=== PATIENT | male | born 1980 | race Caucasian/White ===

== ENCOUNTER 2016-12-30 01:47 | Inpatient (IN) | payer OTHER ==
[~2016-12-30] VITALS: Ht 162.6 cm; Wt 85.8 kg
[2016-12-30] MEDS ORDERED: ZOLPIDEM 5 MG TABLET. PO PRN (03:00)
[2016-12-30] MEDS ORDERED: NICOTINE 14MG PATCH. TD PRN (03:00)
[2016-12-30 03:15] VITALS: BP 128/84
[2016-12-30] MEDS ORDERED: OXYCODONE/APAP 7.5/325 TABLET. PO PRN (03:30)
[2016-12-30] MEDS ORDERED: ONDANSETRON ODT 4 MG TAB.RAPDIS. PO PRN (03:30)
[2016-12-30] MEDS: OXYCODONE/APAP 7.5/325 TABLET. PO PRN ×2 (03:58→09:44)
[2016-12-30] MEDS: IV NORMAL SALINE 1000ML BAG 1,000 ML IV SCH ×2 (03:58→16:30)
[2016-12-30 07:00] VITALS: BP 133/81
[2016-12-30] MEDS: PANTOPRAZOLE 40 MG TABLET.DR. PO SCH (09:36)
[2016-12-30 10:52] LABS: BASO % 0 % (0-3); EOS % 1 % (0-3); HEMATOCRIT 42.3 % (39.0-53.0); HEMOGLOBIN 14.5 g/dL (13.0-17.5); LYMPH # 0.7 x10^3/uL (1.0-4.8); LYMPH % 9 % (24-48); MEAN CORPUSCULAR HEMOGLOBIN 29 pg (25-35); MEAN CORPUSCULAR HGB CONC 34 g/dL (31-37); MEAN CORPUSCULAR VOLUME 86 fL (79-100); MONO % 4 % (0-9); NEUT % 87 % (31-73); PLATELET COUNT 190 x10^3/uL (140-400); RED BLOOD COUNT 4.94 x10^6/uL (4.30-5.70); RED CELL DISTRIBUTION WIDTH 13.1 % (11.5-14.5); WHITE BLOOD COUNT 7.9 x10^3/uL (4.0-11.0)
--- NOTE | 2016-12-30 11:02 | RAD ---
Portable AP upright view CXR: Clinical indications: Cough. Comparison: None available. Findings: No acute lung infiltrate or pleural effusion or pulmonary edema or lung mass or pneumothorax is seen. The heart size, pulmonary vasculature, mediastinum and both marina are unremarkable. Impression: No acute radiographic abnormality is seen.
[2016-12-30 11:04] LABS: CALCIUM 8.5 mg/dL (8.5-10.1); CREATININE 0.8 mg/dL (0.7-1.3); DIRECT BILIRUBIN 0.2 mg/dL (0.0-0.2); GFR 109.4; POTASSIUM 4.1 mmol/L (3.5-5.1)
[2016-12-30 11:14] VITALS: BP 133/90
[2016-12-30 12:06] LABS: PLT ESTIMATE ADEQUATE (ADEQUATE)
--- NOTE | 2016-12-30 12:13 | PDOC1 ---
History and Physical Date of Admission Date of Admission 12/29/16 Identification/Chief Complaint Chief Complaint abd pain Problems: Source Source: Patient History of Present Illness History of Present Illness 36yo M, was sent from [facility] for abd pain. He has had possible esophageal ulcer with NSAIDS in 2014, current not taking NSADIS. Epigastric pain started yesterday AM, no N/V, bm NORMAl daily wo constipation or diarrhea. in [facility] ,as per report (no CT result sent from [facility]), pt was found only left kidney with hydronephrosis with right kidney missing, which is new to pt. Never had EGD, OR Colonoscopy before. vomited here today. Past Medical History Past Medical History none Past Surgical History Past Surgical History: No pertinent history Family History Family History: No Significant Social History Smoke: No ALCOHOL: other (2 times per week) Drugs: None Current Medications Current Medications Current Medications Medications (Trade) Dose Ordered Sig/Philip Start Time Stop Time Status Last Admin Dose Admin Nicotine (Nicoderm Cq 14mg) 1 patch PRN DAILY PRN 12/30/16 03:00 Ondansetron HCl (Zofran Odt) 4 mg PRN Q8HRS PRN 12/30/16 03:30 12/30/16 10:43 4 MG Oxycodone/ Acetaminophen (Percocet 7.5/ 325) 2 tab PRN Q4HRS PRN 12/30/16 03:30 Pantoprazole Sodium 40 mg 40 mg DAILYAC 12/30/16 07:30 12/30/16 09:36 40 MG Sodium Chloride (Iv Sodium Chloride 0.9% 1000ml Bag) 1,000 ml @ 75 mls/hr [id number] 12/30/16 03:30 12/30/16 03:58 75 MLS/HR Zolpidem Tartrate (Ambien) 5 mg PRN QHS PRN 12/30/16 03:00 Allergies Allergies Allergies Coded Allergies Type Severity Reaction Last Updated Verified NSAIDS (Non-Steroidal Anti-Inflamma Adverse Reaction Intermediate 12/30/16 Yes ROS Review of System CONSTITUTIONAL: No fever or chills EYES: No recent changes SKIN: No rash or itching CARDIOVASCULAR: No chest pain, syncope, palpitations, or edema RESPIRATORY: No SOB or cough GASTROINTESTINAL: No nausea, vomiting or abdominal pain NEUROLOGICAL: No headaches or weakness ENDOCRINE: No cold or heat intolerance GENITOURINARY: No urgency or frequency of urination MUSCULOSKELETAL: No back pain or joint pain LYMPHATICS: No enlarged lymph nodes PSYCHIATRIC: No anxiety or depression Physical Exam Physical Exam GEN.: No apparent distress. Alert and oriented. HEENT: Head is normocephalic, atraumatic NECK: Supple. LUNGS: Clear to auscultation. HEART: RRR, S1, S2 present. Peripheral pulses intact ABDOMEN: Soft, Positive bowel sounds. epigastric area moderate tenderness EXTREMITIES: Without any cyanosis. NEUROLOGIC: Normal speech, normal tone PSYCHIATRIC: Normal affect, normal mood. SKIN: No ulcerations Vitals Vitals Vital Signs Date Time Temp Pulse Resp B/P Pulse Ox O2 Delivery O2 Flow Rate FiO2 12/30/16 11:14 97.7 50 18 133/90 98 Room Air 97.7 Labs Labs Laboratory Tests Test 12/30/16 10:22 12/30/16 10:35 White Blood Count 7.9x10^3/uL (4.0-11.0) Red Blood Count 4.94x10^6/uL (4.30-5.70) Hemoglobin 14.5g/dL (13.0-17.5) Hematocrit 42.3% (39.0-53.0) Mean Corpuscular Volume 86fL (79-100) Mean Corpuscular Hemoglobin 29pg (25-35) Mean Corpuscular Hemoglobin Concent 34g/dL (31-37) Red Cell Distribution Width 13.1% (11.5-14.5) Platelet Count 190x10^3/uL (140-400) Neutrophils (%) (Auto) 87% (31-73) Lymphocytes (%) (Auto) 9% (24-48) Monocytes (%) (Auto) 4% (0-9) Eosinophils (%) (Auto) 1% (0-3) Basophils (%) (Auto) 0% (0-3) Neutrophils # (Auto) 6.8x10^3uL (1.8-7.7) Lymphocytes # (Auto) 0.7x10^3/uL (1.0-4.8) Monocytes # (Auto) 0.3x10^3/uL (0.0-1.1) Eosinophils # (Auto) 0.0x10^3/uL (0.0-0.7) Basophils # (Auto) 0.0x10^3/uL (0.0-0.2) Segmented Neutrophils % 85% (35-66) Band Neutrophils % 2% (0-9) Lymphocytes % 8% (24-48) Monocytes % 5% (0-10) Platelet Estimate Adequate (ADEQUATE) Sodium Level 139mmol/L (136-145) Potassium Level 4.1mmol/L (3.5-5.1) Chloride Level 102mmol/L (98-107) Carbon Dioxide Level 28mmol/L (21-32) Anion Gap 9 (6-14) Blood Urea Nitrogen 16mg/dL (8-26) Creatinine 0.8mg/dL (0.7-1.3) Estimated GFR (Cockcroft-Gault) 109.4 Glucose Level 135mg/dL (70-99) Calcium Level 8.5mg/dL (8.5-10.1) Total Bilirubin 1.0mg/dL (0.2-1.0) Direct Bilirubin 0.2mg/dL (0.0-0.2) Aspartate Amino Transf (AST/SGOT) 394U/L (15-37) Alanine Aminotransferase (ALT/SGPT) 69U/L (16-63) Alkaline Phosphatase 50U/L (46-116) Total Protein 7.0g/dL (6.4-8.2) Albumin 4.0g/dL (3.4-5.0) Lipase 131U/L (73-393) Laboratory Tests Test 12/30/16 10:22 12/30/16 10:35 White Blood Count 7.9x10^3/uL (4.0-11.0) Red Blood Count 4.94x10^6/uL (4.30-5.70) Hemoglobin 14.5g/dL (13.0-17.5) Hematocrit 42.3% (39.0-53.0) Mean Corpuscular Volume 86fL (79-100) Mean Corpuscular Hemoglobin 29pg (25-35) Mean Corpuscular Hemoglobin Concent 34g/dL (31-37) Red Cell Distribution Width 13.1% (11.5-14.5) Platelet Count 190x10^3/uL (140-400) Neutrophils (%) (Auto) 87% (31-73) Lymphocytes (%) (Auto) 9% (24-48) Monocytes (%) (Auto) 4% (0-9) Eosinophils (%) (Auto) 1% (0-3) Basophils (%) (Auto) 0% (0-3) Neutrophils # (Auto) 6.8x10^3uL (1.8-7.7) Lymphocytes # (Auto) 0.7x10^3/uL (1.0-4.8) Monocytes # (Auto) 0.3x10^3/uL (0.0-1.1) Eosinophils # (Auto) 0.0x10^3/uL (0.0-0.7) Basophils # (Auto) 0.0x10^3/uL (0.0-0.2) Segmented Neutrophils % 85% (35-66) Band Neutrophils % 2% (0-9) Lymphocytes % 8% (24-48) Monocytes % 5% (0-10) Platelet Estimate Adequate (ADEQUATE) Sodium Level 139mmol/L (136-145) Potassium Level 4.1mmol/L (3.5-5.1) Chloride Level 102mmol/L (98-107) Carbon Dioxide Level 28mmol/L (21-32) Anion Gap 9 (6-14) Blood Urea Nitrogen 16mg/dL (8-26) Creatinine 0.8mg/dL (0.7-1.3) Estimated GFR (Cockcroft-Gault) 109.4 Glucose Level 135mg/dL (70-99) Calcium Level 8.5mg/dL (8.5-10.1) Total Bilirubin 1.0mg/dL (0.2-1.0) Direct Bilirubin 0.2mg/dL (0.0-0.2) Aspartate Amino Transf (AST/SGOT) 394U/L (15-37) Alanine Aminotransferase (ALT/SGPT) 69U/L (16-63) Alkaline Phosphatase 50U/L (46-116) Total Protein 7.0g/dL (6.4-8.2) Albumin 4.0g/dL (3.4-5.0) Lipase 131U/L (73-393) VTE Prophylaxis Ordered VTE Prophylaxis Devices: Yes VTE Pharmacological Prophylaxi: Yes Assessment/Plan Assessment/Plan 1. abd pain , 2/2 gastritis likely 2/2 heavy ETOH 2. elevated transaminitis 2/2 alcoholic hepatitis likely 3. 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 drinker, saying only twice a week, but likely more than that plan: 1. gi, renal consult 2. US abd 3. urine tox 4. protonix daily clear liquid for now, ivf labs daily dvt ppx VASYL KHANNA MD Dec 30, 2016 12:13
[2016-12-30] MEDS ORDERED: MORPHINE SULFATE 4 MG/ML DISP.SYRIN. IV PRN (12:15)
[2016-12-30] MEDS ORDERED: ACETAMINOPHEN 325 MG TABLET. PO PRN (12:15)
[2016-12-30] MEDS ORDERED: MORPHINE SULFATE 2 MG/ML DISP.SYRIN. IV PRN (12:15)
[2016-12-30 12:37] LABS: BARBITURATES NEG (NEG); BENZODIAZEPINES NEG (NEG); CANNABINOIDS NEG (NEG); COCAINE NEG (NEG); METHADONE NEG (NEG); OPIATES POS (NEG); PHENCYCLIDINE NEG (NEG)
[2016-12-30 12:41] LABS: ETHANOL, URINE NEG (NEG)
[2016-12-30] MEDS: ENOXAPARIN 40 MG/0.4 ML SYRINGE. SQ SCH (13:54)
--- NOTE | 2016-12-30 14:16 | PDOC2 ---
CONSULT Date of Consult Date of Consult DATE: 12/30/16 TIME: 14:14 Reason for Consult Reason for Consult: abd pain/increased LFTS Past Surgical History Past Surgical History: No pertinent history Family History Family History: No Significant Social History No ALCOHOL: other (2 times per week) Drugs: None Current Medications Current Medications Current Medications Oxycodone/ Acetaminophen (Percocet 7.5/ 325) 1 tab PRN Q4HRS PRN PO PAIN Last administered on 12/30/16 09:44; Start 12/30/16 at 03:00 Pantoprazole Sodium 40 mg 40 mg DAILYAC PO Last administered on 12/30/16 09:36 ; Start 12/30/16 at 07:30 Sodium Chloride (Iv Sodium Chloride 0.9% 1000ml Bag) 1,000 ml @ 75 mls/hr [id number] IV Last administered on 12/30/16 03:58; Start 12/30/16 at 03:30 Nicotine (Nicoderm Cq 14mg) 1 patch PRN DAILY PRN TD SMOKING CESSATION; Start 12/30/16 at 03:00 Zolpidem Tartrate (Ambien) 5 mg PRN QHS PRN PO INSOMNIA; Start 12/30/16 at 03:00 Ondansetron HCl (Zofran Odt) 4 mg PRN Q8HRS PRN PO NAUSEA/VOMITING Last administered on 12/30/16 10:43; Start 12/30/16 at 03:30 Oxycodone/ Acetaminophen (Percocet 7.5/ 325) 2 tab PRN Q4HRS PRN PO PAIN; Start 12/30/16 at 03:30 Acetaminophen (Tylenol) 650 mg PRN Q6HRS PRN PO FEVER; Start 12/30/16 at 12:15 Morphine Sulfate 2 mg PRN Q2HR PRN IV PAIN; Start 12/30/16 at 12:15 Morphine Sulfate 4 mg PRN Q2HR PRN IV PAIN; Start 12/30/16 at 12:15 Enoxaparin Sodium (Lovenox 40mg Syringe) 40 mg Q24H SQ Last administered on 12/30 13:54; Start 12/30/16 at 13:00 Allergies Allergies: Coded Allergies: NSAIDS (Non-Steroidal Anti-Inflamma (Verified Adverse Reaction, Intermediate, 12/30/16) Prone to ulcer development with prolonged use Vitals VITALS Vital Signs Date Time Temp Pulse Resp B/P Pulse Ox O2 Delivery O2 Flow Rate FiO2 12/30/16 11:14 97.7 50 18 133/90 98 Room Air 97.7 Labs Labs Laboratory Tests Test 12/30/16 10:22 12/30/16 10:35 12/30/16 12:21 White Blood Count 7.9x10^3/uL (4.0-11.0) Red Blood Count 4.94x10^6/uL (4.30-5.70) Hemoglobin 14.5g/dL (13.0-17.5) Hematocrit 42.3% (39.0-53.0) Mean Corpuscular Volume 86fL (79-100) Mean Corpuscular Hemoglobin 29pg (25-35) Mean Corpuscular Hemoglobin Concent 34g/dL (31-37) Red Cell Distribution Width 13.1% (11.5-14.5) Platelet Count 190x10^3/uL (140-400) Neutrophils (%) (Auto) 87% (31-73) Lymphocytes (%) (Auto) 9% (24-48) Monocytes (%) (Auto) 4% (0-9) Eosinophils (%) (Auto) 1% (0-3) Basophils (%) (Auto) 0% (0-3) Neutrophils # (Auto) 6.8x10^3uL (1.8-7.7) Lymphocytes # (Auto) 0.7x10^3/uL (1.0-4.8) Monocytes # (Auto) 0.3x10^3/uL (0.0-1.1) Eosinophils # (Auto) 0.0x10^3/uL (0.0-0.7) Basophils # (Auto) 0.0x10^3/uL (0.0-0.2) Segmented Neutrophils % 85% (35-66) Band Neutrophils % 2% (0-9) Lymphocytes % 8% (24-48) Monocytes % 5% (0-10) Platelet Estimate Adequate (ADEQUATE) Sodium Level 139mmol/L (136-145) Potassium Level 4.1mmol/L (3.5-5.1) Chloride Level 102mmol/L (98-107) Carbon Dioxide Level 28mmol/L (21-32) Anion Gap 9 (6-14) Blood Urea Nitrogen 16mg/dL (8-26) Creatinine 0.8mg/dL (0.7-1.3) Estimated GFR (Cockcroft-Gault) 109.4 Glucose Level 135mg/dL (70-99) Calcium Level 8.5mg/dL (8.5-10.1) Total Bilirubin 1.0mg/dL (0.2-1.0) Direct Bilirubin 0.2mg/dL (0.0-0.2) Aspartate Amino Transf (AST/SGOT) 394U/L (15-37) Alanine Aminotransferase (ALT/SGPT) 69U/L (16-63) Alkaline Phosphatase 50U/L (46-116) Total Protein 7.0g/dL (6.4-8.2) Albumin 4.0g/dL (3.4-5.0) Lipase 131U/L (73-393) Urine Opiates Screen Pos (NEG) Urine Methadone Screen Neg (NEG) Urine Barbiturates Neg (NEG) Urine Phencyclidine Screen Neg (NEG) Urine Amphetamine/Methamphetamine Neg (NEG) Urine Benzodiazepines Screen Neg (NEG) Urine Cocaine Screen Neg (NEG) Urine Cannabinoids Screen Neg (NEG) Urine Ethyl Alcohol Neg (NEG) Laboratory Tests Test 12/30/16 10:22 12/30/16 10:35 12/30/16 12:21 White Blood Count 7.9x10^3/uL (4.0-11.0) Red Blood Count 4.94x10^6/uL (4.30-5.70) Hemoglobin 14.5g/dL (13.0-17.5) Hematocrit 42.3% (39.0-53.0) Mean Corpuscular Volume 86fL (79-100) Mean Corpuscular Hemoglobin 29pg (25-35) Mean Corpuscular Hemoglobin Concent 34g/dL (31-37) Red Cell Distribution Width 13.1% (11.5-14.5) Platelet Count 190x10^3/uL (140-400) Neutrophils (%) (Auto) 87% (31-73) Lymphocytes (%) (Auto) 9% (24-48) Monocytes (%) (Auto) 4% (0-9) Eosinophils (%) (Auto) 1% (0-3) Basophils (%) (Auto) 0% (0-3) Neutrophils # (Auto) 6.8x10^3uL (1.8-7.7) Lymphocytes # (Auto) 0.7x10^3/uL (1.0-4.8) Monocytes # (Auto) 0.3x10^3/uL (0.0-1.1) Eosinophils # (Auto) 0.0x10^3/uL (0.0-0.7) Basophils # (Auto) 0.0x10^3/uL (0.0-0.2) Segmented Neutrophils % 85% (35-66) Band Neutrophils % 2% (0-9) Lymphocytes % 8% (24-48) Monocytes % 5% (0-10) Platelet Estimate Adequate (ADEQUATE) Sodium Level 139mmol/L (136-145) Potassium Level 4.1mmol/L (3.5-5.1) Chloride Level 102mmol/L (98-107) Carbon Dioxide Level 28mmol/L (21-32) Anion Gap 9 (6-14) Blood Urea Nitrogen 16mg/dL (8-26) Creatinine 0.8mg/dL (0.7-1.3) Estimated GFR (Cockcroft-Gault) 109.4 Glucose Level 135mg/dL (70-99) Calcium Level 8.5mg/dL (8.5-10.1) Total Bilirubin 1.0mg/dL (0.2-1.0) Direct Bilirubin 0.2mg/dL (0.0-0.2) Aspartate Amino Transf (AST/SGOT) 394U/L (15-37) Alanine Aminotransferase (ALT/SGPT) 69U/L (16-63) Alkaline Phosphatase 50U/L (46-116) Total Protein 7.0g/dL (6.4-8.2) Albumin 4.0g/dL (3.4-5.0) Lipase 131U/L (73-393) Urine Opiates Screen Pos (NEG) Urine Methadone Screen Neg (NEG) Urine Barbiturates Neg (NEG) Urine Phencyclidine Screen Neg (NEG) Urine Amphetamine/Methamphetamine Neg (NEG) Urine Benzodiazepines Screen Neg (NEG) Urine Cocaine Screen Neg (NEG) Urine Cannabinoids Screen Neg (NEG) Urine Ethyl Alcohol Neg (NEG) Assessment/Plan Assessment/Plan ABd pain- with nausea and increased LFTS, GB disease leads differential. Viral hepatitis and/or alcoholic hepatitis in differential. Plan advance diet US liver/gb to further assess viral serologies Full note dictated RAMIRO HURTADO MD Dec 30, 2016 14:16
[2016-12-30 14:48] VITALS: BP 137/98
[2016-12-30 19:47] VITALS: BP 137/92
[2016-12-30 23:17] VITALS: BP 133/90
[2016-12-31 03:59] VITALS: BP 111/72
[2016-12-31 04:32] LABS: BASO % 0 % (0-3); EOS % 7 % (0-3); HEMATOCRIT 41.1 % (39.0-53.0); HEMOGLOBIN 13.8 g/dL (13.0-17.5); LYMPH % 32 % (24-48); MEAN CORPUSCULAR HEMOGLOBIN 29 pg (25-35); MEAN CORPUSCULAR HGB CONC 34 g/dL (31-37); MEAN CORPUSCULAR VOLUME 87 fL (79-100); MONO % 6 % (0-9); NEUT % 55 % (31-73); PLATELET COUNT 164 x10^3/uL (140-400); RED BLOOD COUNT 4.71 x10^6/uL (4.30-5.70); RED CELL DISTRIBUTION WIDTH 13.5 % (11.5-14.5); WHITE BLOOD COUNT 6.4 x10^3/uL (4.0-11.0)
[2016-12-31 05:06] LABS: ALBUMIN 3.5 g/dL (3.4-5.0); CALCIUM 8.5 mg/dL (8.5-10.1); CREATININE 0.8 mg/dL (0.7-1.3); DIRECT BILIRUBIN 0.3 mg/dL (0.0-0.2); GFR 109.4; POTASSIUM 3.5 mmol/L (3.5-5.1); TOTAL BILIRUBIN 1.1 mg/dL (0.2-1.0); TOTAL PROTEIN 6.3 g/dL (6.4-8.2)
[2016-12-31] MEDS: IV NORMAL SALINE 1000ML BAG 1,000 ML IV SCH (06:08)
[2016-12-31 07:00] VITALS: BP 124/80
[2016-12-31] MEDS: PANTOPRAZOLE 40 MG TABLET.DR. PO SCH (08:15)
--- NOTE | 2016-12-31 10:51 | RAD ---
Complete abdomen ultrasound study Clinical indications: Abdominal pain. Findings: The tail of the pancreas is obscured by overlying bowel gas. The rest of the pancreas is homogeneous without focal enlargement. No focal aneurysmal dilatation of the abdominal aorta is seen. The intrahepatic portion of the IVC is unremarkable. The liver is homogeneous and no focal hepatic mass is evident. The liver measures 13.2 cm in length. The gallbladder is normal without gallstones. The extrahepatic bile duct measures 3.0 mm in caliber which is normal. The spleen measures 12.2 cm in length which is at the upper limits of normal. The spleen is homogeneous. The right kidney is not visualized. The longitudinal dimension of the left kidney is 13.9 cm. No hydronephrosis or renal mass or perinephric fluid collection is seen on this side. No ascites is evident. IMPRESSION: Normal sonographic evaluation of the gallbladder. The right kidney is not visualized.
[2016-12-31 11:01] VITALS: BP 120/79
--- NOTE | 2016-12-31 12:08 | PDOC ---
PROGRESS NOTES Chief Complaint Chief Complaint 1. abd pain , 2/2 gastritis likely 2/2 heavy ETOH 2. elevated transaminitis 2/2 alcoholic hepatitis likely 3. 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 drinker, saying only twice a week, but likely more than that plan: 1. gi, renal consult pending 2. US abd done, rt kidney not seen. no hydronephrosis 3. urine tox done 4. protonix daily dc ivf, advance diet to gi soft labs daily, hepatitis panel pending dvt ppx stable, dc today or tmr History of Present Illness History of Present Illness abd pain better, no N/V LFT still high Vitals Vitals Vital Signs Date Time Temp Pulse Resp B/P Pulse Ox O2 Delivery O2 Flow Rate FiO2 12/31/16 11:01 98.2 70 18 120/79 96 Room Air 98.2 Physical Exam General: Alert, Oriented X3, Cooperative Heart: Regular rate, Normal S1, Normal S2 Lungs: Clear Abdomen: Normal bowel sounds, Soft Extremities: No clubbing, No cyanosis Labs LABS Laboratory Tests Test 12/30/16 12:21 12/31/16 03:40 Urine Opiates Screen Pos (NEG) Urine Methadone Screen Neg (NEG) Urine Barbiturates Neg (NEG) Urine Phencyclidine Screen Neg (NEG) Urine Amphetamine/Methamphetamine Neg (NEG) Urine Benzodiazepines Screen Neg (NEG) Urine Cocaine Screen Neg (NEG) Urine Cannabinoids Screen Neg (NEG) Urine Ethyl Alcohol Neg (NEG) White Blood Count 6.4x10^3/uL (4.0-11.0) Red Blood Count 4.71x10^6/uL (4.30-5.70) Hemoglobin 13.8g/dL (13.0-17.5) Hematocrit 41.1% (39.0-53.0) Mean Corpuscular Volume 87fL (79-100) Mean Corpuscular Hemoglobin 29pg (25-35) Mean Corpuscular Hemoglobin Concent 34g/dL (31-37) Red Cell Distribution Width 13.5% (11.5-14.5) Platelet Count 164x10^3/uL (140-400) Neutrophils (%) (Auto) 55% (31-73) Lymphocytes (%) (Auto) 32% (24-48) Monocytes (%) (Auto) 6% (0-9) Eosinophils (%) (Auto) 7% (0-3) Basophils (%) (Auto) 0% (0-3) Neutrophils # (Auto) 3.5x10^3uL (1.8-7.7) Lymphocytes # (Auto) 2.0x10^3/uL (1.0-4.8) Monocytes # (Auto) 0.4x10^3/uL (0.0-1.1) Eosinophils # (Auto) 0.4x10^3/uL (0.0-0.7) Basophils # (Auto) 0.0x10^3/uL (0.0-0.2) Sodium Level 142mmol/L (136-145) Potassium Level 3.5mmol/L (3.5-5.1) Chloride Level 107mmol/L (98-107) Carbon Dioxide Level 27mmol/L (21-32) Anion Gap 8 (6-14) Blood Urea Nitrogen 8mg/dL (8-26) Creatinine 0.8mg/dL (0.7-1.3) Estimated GFR (Cockcroft-Gault) 109.4 Glucose Level 103mg/dL (70-99) Calcium Level 8.5mg/dL (8.5-10.1) Total Bilirubin 1.1mg/dL (0.2-1.0) Direct Bilirubin 0.3mg/dL (0.0-0.2) Aspartate Amino Transf (AST/SGOT) 385U/L (15-37) Alanine Aminotransferase (ALT/SGPT) 73U/L (16-63) Alkaline Phosphatase 48U/L (46-116) Total Protein 6.3g/dL (6.4-8.2) Albumin 3.5g/dL (3.4-5.0) Review of Systems Review of Systems no fever, chills, sob or chest pain Comment Review of Relevant I have reviewed the following items amor (where applicable) has been applied. Labs Laboratory Tests Test 12/30/16 10:22 12/30/16 10:35 12/30/16 12:21 12/31/16 03:40 White Blood Count 7.9x10^3/uL (4.0-11.0) 6.4x10^3/uL (4.0-11.0) Red Blood Count 4.94x10^6/uL (4.30-5.70) 4.71x10^6/uL (4.30-5.70) Hemoglobin 14.5g/dL (13.0-17.5) 13.8g/dL (13.0-17.5) Hematocrit 42.3% (39.0-53.0) 41.1% (39.0-53.0) Mean Corpuscular Volume 86fL (79-100) 87fL (79-100) Mean Corpuscular Hemoglobin 29pg (25-35) 29pg (25-35) Mean Corpuscular Hemoglobin Concent 34g/dL (31-37) 34g/dL (31-37) Red Cell Distribution Width 13.1% (11.5-14.5) 13.5% (11.5-14.5) Platelet Count 190x10^3/uL (140-400) 164x10^3/uL (140-400) Neutrophils (%) (Auto) 87% (31-73) 55% (31-73) Lymphocytes (%) (Auto) 9% (24-48) 32% (24-48) Monocytes (%) (Auto) 4% (0-9) 6% (0-9) Eosinophils (%) (Auto) 1% (0-3) 7% (0-3) Basophils (%) (Auto) 0% (0-3) 0% (0-3) Neutrophils # (Auto) 6.8x10^3uL (1.8-7.7) 3.5x10^3uL (1.8-7.7) Lymphocytes # (Auto) 0.7x10^3/uL (1.0-4.8) 2.0x10^3/uL (1.0-4.8) Monocytes # (Auto) 0.3x10^3/uL (0.0-1.1) 0.4x10^3/uL (0.0-1.1) Eosinophils # (Auto) 0.0x10^3/uL (0.0-0.7) 0.4x10^3/uL (0.0-0.7) Basophils # (Auto) 0.0x10^3/uL (0.0-0.2) 0.0x10^3/uL (0.0-0.2) Segmented Neutrophils % 85% (35-66) Band Neutrophils % 2% (0-9) Lymphocytes % 8% (24-48) Monocytes % 5% (0-10) Platelet Estimate Adequate (ADEQUATE) Sodium Level 139mmol/L (136-145) 142mmol/L (136-145) Potassium Level 4.1mmol/L (3.5-5.1) 3.5mmol/L (3.5-5.1) Chloride Level 102mmol/L (98-107) 107mmol/L (98-107) Carbon Dioxide Level 28mmol/L (21-32) 27mmol/L (21-32) Anion Gap 9 (6-14) 8 (6-14) Blood Urea Nitrogen 16mg/dL (8-26) 8mg/dL (8-26) Creatinine 0.8mg/dL (0.7-1.3) 0.8mg/dL (0.7-1.3) Estimated GFR (Cockcroft-Gault) 109.4 109.4 Glucose Level 135mg/dL (70-99) 103mg/dL (70-99) Calcium Level 8.5mg/dL (8.5-10.1) 8.5mg/dL (8.5-10.1) Total Bilirubin 1.0mg/dL (0.2-1.0) 1.1mg/dL (0.2-1.0) Direct Bilirubin 0.2mg/dL (0.0-0.2) 0.3mg/dL (0.0-0.2) Aspartate Amino Transf (AST/SGOT) 394U/L (15-37) 385U/L (15-37) Alanine Aminotransferase (ALT/SGPT) 69U/L (16-63) 73U/L (16-63) Alkaline Phosphatase 50U/L (46-116) 48U/L (46-116) Total Protein 7.0g/dL (6.4-8.2) 6.3g/dL (6.4-8.2) Albumin 4.0g/dL (3.4-5.0) 3.5g/dL (3.4-5.0) Lipase 131U/L (73-393) Urine Opiates Screen Pos (NEG) Urine Methadone Screen Neg (NEG) Urine Barbiturates Neg (NEG) Urine Phencyclidine Screen Neg (NEG) Urine Amphetamine/Methamphetamine Neg (NEG) Urine Benzodiazepines Screen Neg (NEG) Urine Cocaine Screen Neg (NEG) Urine Cannabinoids Screen Neg (NEG) Urine Ethyl Alcohol Neg (NEG) Laboratory Tests Test 12/30/16 12:21 12/31/16 03:40 Urine Opiates Screen Pos (NEG) Urine Methadone Screen Neg (NEG) Urine Barbiturates Neg (NEG) Urine Phencyclidine Screen Neg (NEG) Urine Amphetamine/Methamphetamine Neg (NEG) Urine Benzodiazepines Screen Neg (NEG) Urine Cocaine Screen Neg (NEG) Urine Cannabinoids Screen Neg (NEG) Urine Ethyl Alcohol Neg (NEG) White Blood Count 6.4x10^3/uL (4.0-11.0) Red Blood Count 4.71x10^6/uL (4.30-5.70) Hemoglobin 13.8g/dL (13.0-17.5) Hematocrit 41.1% (39.0-53.0) Mean Corpuscular Volume 87fL (79-100) Mean Corpuscular Hemoglobin 29pg (25-35) Mean Corpuscular Hemoglobin Concent 34g/dL (31-37) Red Cell Distribution Width 13.5% (11.5-14.5) Platelet Count 164x10^3/uL (140-400) Neutrophils (%) (Auto) 55% (31-73) Lymphocytes (%) (Auto) 32% (24-48) Monocytes (%) (Auto) 6% (0-9) Eosinophils (%) (Auto) 7% (0-3) Basophils (%) (Auto) 0% (0-3) Neutrophils # (Auto) 3.5x10^3uL (1.8-7.7) Lymphocytes # (Auto) 2.0x10^3/uL (1.0-4.8) Monocytes # (Auto) 0.4x10^3/uL (0.0-1.1) Eosinophils # (Auto) 0.4x10^3/uL (0.0-0.7) Basophils # (Auto) 0.0x10^3/uL (0.0-0.2) Sodium Level 142mmol/L (136-145) Potassium Level 3.5mmol/L (3.5-5.1) Chloride Level 107mmol/L (98-107) Carbon Dioxide Level 27mmol/L (21-32) Anion Gap 8 (6-14) Blood Urea Nitrogen 8mg/dL (8-26) Creatinine 0.8mg/dL (0.7-1.3) Estimated GFR (Cockcroft-Gault) 109.4 Glucose Level 103mg/dL (70-99) Calcium Level 8.5mg/dL (8.5-10.1) Total Bilirubin 1.1mg/dL (0.2-1.0) Direct Bilirubin 0.3mg/dL (0.0-0.2) Aspartate Amino Transf (AST/SGOT) 385U/L (15-37) Alanine Aminotransferase (ALT/SGPT) 73U/L (16-63) Alkaline Phosphatase 48U/L (46-116) Total Protein 6.3g/dL (6.4-8.2) Albumin 3.5g/dL (3.4-5.0) Medications Current Medications Oxycodone/ Acetaminophen (Percocet 7.5/ 325) 1 tab PRN Q4HRS PRN PO PAIN Last administered on 12/30/16 09:44; Start 12/30/16 at 03:00 Pantoprazole Sodium 40 mg 40 mg DAILYAC PO Last administered on 12/31/16 08:15 ; Start 12/30/16 at 07:30 Sodium Chloride (Iv Sodium Chloride 0.9% 1000ml Bag) 1,000 ml @ 75 mls/hr [id number] IV Last administered on 12/31/16 06:08; Start 12/30/16 at 03:30; Stop at 10:11; Status DC Nicotine (Nicoderm Cq 14mg) 1 patch PRN DAILY PRN TD SMOKING CESSATION; Start 12/30/16 at 03:00 Zolpidem Tartrate (Ambien) 5 mg PRN QHS PRN PO INSOMNIA; Start 12/30/16 at 03:00 Ondansetron HCl (Zofran Odt) 4 mg PRN Q8HRS PRN PO NAUSEA/VOMITING Last administered on 12/30/16 10:43; Start 12/30/16 at 03:30 Oxycodone/ Acetaminophen (Percocet 7.5/ 325) 2 tab PRN Q4HRS PRN PO PAIN; Start 12/30/16 at 03:30 Acetaminophen (Tylenol) 650 mg PRN Q6HRS PRN PO FEVER; Start 12/30/16 at 12:15 Morphine Sulfate 2 mg PRN Q2HR PRN IV PAIN; Start 12/30/16 at 12:15 Morphine Sulfate 4 mg PRN Q2HR PRN IV PAIN; Start 12/30/16 at 12:15 Enoxaparin Sodium (Lovenox 40mg Syringe) 40 mg Q24H SQ Last administered on 12/30t 13:54; Start 12/30/16 at 13:00 Vitals/I & O Vital Sign - Last 24 Hours 12/30/16 12/30/16 12/30/16 12/30/16 14:48 19:47 20:00 23:17 Temp 97.7 98.2 98.0 97.7 98.2 98.0 Pulse 59 64 65 Resp 18 B/P 137/98 137/92 133/90 Pulse Ox 100 100 97 O2 Delivery Room Air Room Air Room Air Room Air 12/31/16 12/31/16 12/31/16 12/31/16 03:59 07:00 08:20 11:01 Temp 98.3 98.3 98.2 98.3 98.3 98.2 Pulse 60 71 70 Resp 18 18 18 B/P 111/72 124/80 120/79 Pulse Ox 96 96 96 O2 Delivery Room Air Room Air Room Air Room Air Intake and Output 12/30/16 12/30/16 12/31/16 15:00 23:00 07:00 Intake Total 250 ml 200 ml Output Total 2475 ml 900 ml Balance 250 ml -2475 ml -700 ml VASYL KHANNA MD Dec 31, 2016 12:08
[2016-12-31] MEDS: ENOXAPARIN 40 MG/0.4 ML SYRINGE. SQ SCH (12:55)
[2016-12-31 14:56] VITALS: BP 122/78
[2016-12-31] MEDS: FOLIC ACID 1 MG TABLET. PO SCH (18:06)
[2016-12-31] MEDS: THIAMINE 100 MG TABLET. PO SCH (18:06)
[2016-12-31 19:56] VITALS: BP 126/85
[2016-12-31 23:10] VITALS: BP 127/93
--- NOTE | 2017-01-01 05:45 | CONS ---
DATE OF CONSULTATION: 12/30/2016 REASON FOR CONSULTATION: Epigastric abdominal pain and abnormal liver function tests. HISTORY OF PRESENT ILLNESS: A 36-year-old male with a past medical history that is noncontributory except for social alcohol consumption was admitted to [facility] from [facility] for worsening epigastric pain that began yesterday, is associated with some nausea. He has taken NSAIDs in the past with reported history of esophageal ulcer. Denies any dysphagia or odynophagia. Denies any melena, hematemesis and/or hematochezia. Weight and appetite have been stable until recent events. There is no family history of liver disease, but there is a family history of gallbladder disease with his grandfather. With the continued symptoms, he has been transferred here to [facility] for further evaluation. Liver function tests did have an AST of 394, ALT of 69, glucose of 135, total bilirubin 1.0, direct bilirubin 0.2. With the continued issues, GI consultation is requested. PAST MEDICAL HISTORY: Noncontributory. ALLERGIES: ANTI-INFLAMMATORY. MEDICATIONS: At present time include Lovenox, morphine, Protonix, Zofran, zolpidem and nicotine. SOCIAL HISTORY: He is a social drinker. He does not smoke. FAMILY HISTORY: Significant for gallbladder disease with his grandfather. REVIEW OF SYSTEMS: Per records. PHYSICAL EXAMINATION: VITAL SIGNS: Temperature is 97.7, pulse is 50, respirations are 18, blood pressure is 133/90. HEENT: Normocephalic and atraumatic head. Pupils and extraocular muscles not tested. Sclerae anicteric. NECK: Supple. LUNGS: Clear. CARDIOVASCULAR: Reveals an S1, S2 without S3, S4 or appreciable murmur. ABDOMEN: Reveals epigastric tenderness to deep palpation without appreciable hepatosplenomegaly. EXTREMITIES: Reveal no cyanosis, clubbing or edema. LABORATORY STUDIES: Sodium 139, potassium 4.1, chloride 102, bicarbonate 28, BUN 15, creatinine 0.8, glucose is 135, calcium is 8.5, total bilirubin is 1.0, direct bilirubin 0.2, AST of 394, ALT of 69, alkaline phosphatase of 50, total protein 7.0, albumin is 4.0, lipase is 131. Hemoglobin is 14.5, hematocrit 42.3, white count of 7.6, platelet count is 190,000. Viral serologies are pending. IMPRESSION: Abdominal pain, possible gallbladder disease, elevated liver function tests, could be alcoholic hepatitis, viral infection, drug-induced side effect among others and so therefore I recommend viral serologies as well in addition to the ultrasound. I would like to thank Dr. Arthur for allowing us to consult and participate in this patient's care. RAMIRO HURTADO MD DR: ELIJAH/minal JOB#: [id number] / [id number] ASHLEY Lisa MD, CHUNMEI MD
[2017-01-01 07:00] VITALS: BP 124/80
[2017-01-01] MEDS: FOLIC ACID 1 MG TABLET. PO SCH (08:59)
[2017-01-01] MEDS: PANTOPRAZOLE 40 MG TABLET.DR. PO SCH (08:59)
[2017-01-01] MEDS: THIAMINE 100 MG TABLET. PO SCH (08:59)
[2017-01-01 10:40] VITALS: BP 139/96
[2017-01-01] MEDS: ENOXAPARIN 40 MG/0.4 ML SYRINGE. SQ SCH (12:51)
[2017-01-01 13:40] VITALS: BP 128/79
--- NOTE | 2017-01-01 14:18 | PDOC ---
Subjective: Subjective: Some abd pain w/ movement. Objective: Vital Signs: Vital Signs Date Time Temp Pulse Resp B/P Pulse Ox O2 Delivery O2 Flow Rate FiO2 01/01/17 10:40 98.2 61 18 139/96 96 Room Air 98.2 PE: GEN: NAD LUNGS: CTAB HEART: RRR ABD: BS+, soft, LUQ discomfort NEURO/PSYCH: A & O 3 A/P: Abd pain -LUQ, not clearly GI-related, likely MSK Elevated LFTs -likely related to EtOH -acute Hep panel pending Left hydronephrosis -- Urology consult prior to release. ALICIA DALEY Jan 01, 2017 14:18
[2017-01-01 14:22] LABS: HEP A IGM ABDY Negative (Negative)
--- NOTE | 2017-01-01 15:19 | PDOC ---
PROGRESS NOTES Subjective Subjective Solitary left kidney-congenital Objective Objective Vital Signs Date Time Temp Pulse Resp B/P Pulse Ox O2 Delivery O2 Flow Rate FiO2 01/01/17 10:40 98.2 61 18 139/96 96 Room Air 98.2 Intake and Output 01/01/17 07:00 Intake Total 1400 ml Output Total 1001 ml Balance 399 ml Intake Oral 1400 ml Output Urine Total 1001 ml # Voids 5 Physical Exam Physical Exam left [place] on CT from 12/30 No hydro on f/u sono Assessment Assessment Nl-Cr. No sxs Positive history on azospermia according to Pt. Will get Lasix renal scan to r/o obstruction Will need to also f/u with Dr. Vazquez at urology Comment Review of Relevant I have reviewed the following items amor (where applicable) has been applied. Labs Laboratory Tests Test 12/31/16 03:40 White Blood Count 6.4x10^3/uL (4.0-11.0) Red Blood Count 4.71x10^6/uL (4.30-5.70) Hemoglobin 13.8g/dL (13.0-17.5) Hematocrit 41.1% (39.0-53.0) Mean Corpuscular Volume 87fL (79-100) Mean Corpuscular Hemoglobin 29pg (25-35) Mean Corpuscular Hemoglobin Concent 34g/dL (31-37) Red Cell Distribution Width 13.5% (11.5-14.5) Platelet Count 164x10^3/uL (140-400) Neutrophils (%) (Auto) 55% (31-73) Lymphocytes (%) (Auto) 32% (24-48) Monocytes (%) (Auto) 6% (0-9) Eosinophils (%) (Auto) 7% (0-3) Basophils (%) (Auto) 0% (0-3) Neutrophils # (Auto) 3.5x10^3uL (1.8-7.7) Lymphocytes # (Auto) 2.0x10^3/uL (1.0-4.8) Monocytes # (Auto) 0.4x10^3/uL (0.0-1.1) Eosinophils # (Auto) 0.4x10^3/uL (0.0-0.7) Basophils # (Auto) 0.0x10^3/uL (0.0-0.2) Sodium Level 142mmol/L (136-145) Potassium Level 3.5mmol/L (3.5-5.1) Chloride Level 107mmol/L (98-107) Carbon Dioxide Level 27mmol/L (21-32) Anion Gap 8 (6-14) Blood Urea Nitrogen 8mg/dL (8-26) Creatinine 0.8mg/dL (0.7-1.3) Estimated GFR (Cockcroft-Gault) 109.4 Glucose Level 103mg/dL (70-99) Calcium Level 8.5mg/dL (8.5-10.1) Total Bilirubin 1.1mg/dL (0.2-1.0) Direct Bilirubin 0.3mg/dL (0.0-0.2) Aspartate Amino Transf (AST/SGOT) 385U/L (15-37) Alanine Aminotransferase (ALT/SGPT) 73U/L (16-63) Alkaline Phosphatase 48U/L (46-116) Total Protein 6.3g/dL (6.4-8.2) Albumin 3.5g/dL (3.4-5.0) Hepatitis A IgM Antibody Negative (Negative) Hepatitis B Surface Antigen Negative (Negative) Hepatitis B Core IgM Antibody Negative (Negative) Hepatitis C Antibody <0.1s/co ratio (0.0-0.9) Medications Current Medications Oxycodone/ Acetaminophen (Percocet 7.5/ 325) 1 tab PRN Q4HRS PRN PO MODERATE PAIN Last administered on 12/30/16 09:44; Start 12/30/16 at 03:00 Pantoprazole Sodium 40 mg 40 mg DAILYAC PO Last administered on 01/01/17 08:59 ; Start 12/30/16 at 07:30 Sodium Chloride (Iv Sodium Chloride 0.9% 1000ml Bag) 1,000 ml @ 75 mls/hr [id number] IV Last administered on 12/31/16 06:08; Start 12/30/16 at 03:30; Stop at 10:11; Status DC Nicotine (Nicoderm Cq 14mg) 1 patch PRN DAILY PRN TD SMOKING CESSATION; Start 12/30/16 at 03:00 Zolpidem Tartrate (Ambien) 5 mg PRN QHS PRN PO INSOMNIA; Start 12/30/16 at 03:00 Ondansetron HCl (Zofran Odt) 4 mg PRN Q8HRS PRN PO NAUSEA/VOMITING Last administered on 12/30/16 10:43; Start 12/30/16 at 03:30 Oxycodone/ Acetaminophen (Percocet 7.5/ 325) 2 tab PRN Q4HRS PRN PO SEVERE PAIN ; Start 12/30/16 at 03:30 Acetaminophen (Tylenol) 650 mg PRN Q6HRS PRN PO FEVER; Start 12/30/16 at 12:15 Morphine Sulfate 2 mg PRN Q2HR PRN IV MODERATE PAIN; Start 12/30/16 at 12:15 Morphine Sulfate 4 mg PRN Q2HR PRN IV SEVERE PAIN; Start 12/30/16 at 12:15 Enoxaparin Sodium (Lovenox 40mg Syringe) 40 mg Q24H SQ Last administered on 12:51; Start 12/30/16 at 13:00 Thiamine HCl (Vitamin B-1) 100 mg DAILY PO Last administered on 01/01/17 08:59 ; Start 12/31/16 at 18:00 Folic Acid (Folic Acid) 1 mg DAILY PO Last administered on 01/01/17 08:59; Start 12/31/16 at 18:00 Vitals/I & O Vital Sign - Last 24 Hours 12/31/16 12/31/16 12/31/16 01/01/17 19:55 19:56 23:10 03:15 Temp 97.9 96.6 97.9 96.6 Pulse 72 53 Resp 18 B/P 126/85 127/93 Pulse Ox 98 94 O2 Delivery Room Air Room Air Room Air Room Air 01/01/17 01/01/17 01/01/17 07:00 08:00 10:40 Temp 97.7 98.2 97.7 98.2 Pulse 63 61 Resp 18 18 B/P 124/80 139/96 Pulse Ox 93 96 O2 Delivery Room Air Room Air Room Air Intake and Output 12/31/16 12/31/16 01/01/17 15:00 23:00 07:00 Intake Total 500 ml 900 ml Output Total 1000 ml 1 ml Balance 500 ml -100 ml -1 ml KENDAL LEOS MD Jan 01, 2017 15:19
[2017-01-01 15:46] VITALS: BP 128/79
--- NOTE | 2017-01-01 17:03 | PDOC ---
PROGRESS NOTES Chief Complaint Chief Complaint 1. Abdominal pain , 2/2 gastritis likely 2/2 heavy ETOH 2. elevated transaminitis 2/2 alcoholic hepatitis likely 3. solitary Left kidney, congenital 4. Alcohol use, heavy Plan Lasix renal scan to r/o obstruction pending clinically improving Mild elevation of LFT GI recommendations noted hepatitis panel negative. History of Present Illness History of Present Illness abd pain better, no N/V LFT still high no fever no chills. Vitals Vitals Vital Signs Date Time Temp Pulse Resp B/P Pulse Ox O2 Delivery O2 Flow Rate FiO2 01/01/17 15:46 97.9 69 18 128/79 95 Room Air 97.9 Physical Exam General: Alert, Oriented X3, Cooperative Heart: Regular rate, Normal S1, Normal S2 Lungs: Clear Abdomen: Normal bowel sounds, Soft Extremities: No clubbing, No cyanosis Comment Review of Relevant I have reviewed the following items amor (where applicable) has been applied. Labs Laboratory Tests Test 12/31/16 03:40 White Blood Count 6.4x10^3/uL (4.0-11.0) Red Blood Count 4.71x10^6/uL (4.30-5.70) Hemoglobin 13.8g/dL (13.0-17.5) Hematocrit 41.1% (39.0-53.0) Mean Corpuscular Volume 87fL (79-100) Mean Corpuscular Hemoglobin 29pg (25-35) Mean Corpuscular Hemoglobin Concent 34g/dL (31-37) Red Cell Distribution Width 13.5% (11.5-14.5) Platelet Count 164x10^3/uL (140-400) Neutrophils (%) (Auto) 55% (31-73) Lymphocytes (%) (Auto) 32% (24-48) Monocytes (%) (Auto) 6% (0-9) Eosinophils (%) (Auto) 7% (0-3) Basophils (%) (Auto) 0% (0-3) Neutrophils # (Auto) 3.5x10^3uL (1.8-7.7) Lymphocytes # (Auto) 2.0x10^3/uL (1.0-4.8) Monocytes # (Auto) 0.4x10^3/uL (0.0-1.1) Eosinophils # (Auto) 0.4x10^3/uL (0.0-0.7) Basophils # (Auto) 0.0x10^3/uL (0.0-0.2) Sodium Level 142mmol/L (136-145) Potassium Level 3.5mmol/L (3.5-5.1) Chloride Level 107mmol/L (98-107) Carbon Dioxide Level 27mmol/L (21-32) Anion Gap 8 (6-14) Blood Urea Nitrogen 8mg/dL (8-26) Creatinine 0.8mg/dL (0.7-1.3) Estimated GFR (Cockcroft-Gault) 109.4 Glucose Level 103mg/dL (70-99) Calcium Level 8.5mg/dL (8.5-10.1) Total Bilirubin 1.1mg/dL (0.2-1.0) Direct Bilirubin 0.3mg/dL (0.0-0.2) Aspartate Amino Transf (AST/SGOT) 385U/L (15-37) Alanine Aminotransferase (ALT/SGPT) 73U/L (16-63) Alkaline Phosphatase 48U/L (46-116) Total Protein 6.3g/dL (6.4-8.2) Albumin 3.5g/dL (3.4-5.0) Hepatitis A IgM Antibody Negative (Negative) Hepatitis B Surface Antigen Negative (Negative) Hepatitis B Core IgM Antibody Negative (Negative) Hepatitis C Antibody <0.1s/co ratio (0.0-0.9) Medications Current Medications Oxycodone/ Acetaminophen (Percocet 7.5/ 325) 1 tab PRN Q4HRS PRN PO MODERATE PAIN Last administered on 12/30/16 09:44; Start 12/30/16 at 03:00 Pantoprazole Sodium 40 mg 40 mg DAILYAC PO Last administered on 01/01/17 08:59 ; Start 12/30/16 at 07:30 Sodium Chloride (Iv Sodium Chloride 0.9% 1000ml Bag) 1,000 ml @ 75 mls/hr [id number] IV Last administered on 12/31/16 06:08; Start 12/30/16 at 03:30; Stop at 10:11; Status DC Nicotine (Nicoderm Cq 14mg) 1 patch PRN DAILY PRN TD SMOKING CESSATION; Start 12/30/16 at 03:00 Zolpidem Tartrate (Ambien) 5 mg PRN QHS PRN PO INSOMNIA; Start 12/30/16 at 03:00 Ondansetron HCl (Zofran Odt) 4 mg PRN Q8HRS PRN PO NAUSEA/VOMITING Last administered on 12/30/16 10:43; Start 12/30/16 at 03:30 Oxycodone/ Acetaminophen (Percocet 7.5/ 325) 2 tab PRN Q4HRS PRN PO SEVERE PAIN ; Start 12/30/16 at 03:30 Acetaminophen (Tylenol) 650 mg PRN Q6HRS PRN PO FEVER; Start 12/30/16 at 12:15 Morphine Sulfate 2 mg PRN Q2HR PRN IV MODERATE PAIN; Start 12/30/16 at 12:15 Morphine Sulfate 4 mg PRN Q2HR PRN IV SEVERE PAIN; Start 12/30/16 at 12:15 Enoxaparin Sodium (Lovenox 40mg Syringe) 40 mg Q24H SQ Last administered on 12:51; Start 12/30/16 at 13:00 Thiamine HCl (Vitamin B-1) 100 mg DAILY PO Last administered on 01/01/17 08:59 ; Start 12/31/16 at 18:00 Folic Acid (Folic Acid) 1 mg DAILY PO Last administered on 01/01/17 08:59; Start 12/31/16 at 18:00 Vitals/I & O Vital Sign - Last 24 Hours 12/31/16 12/31/16 12/31/16 01/01/17 19:55 19:56 23:10 03:15 Temp 97.9 96.6 97.9 96.6 Pulse 72 53 Resp 18 B/P 126/85 127/93 Pulse Ox 98 94 O2 Delivery Room Air Room Air Room Air Room Air 01/01/17 01/01/17 01/01/17 01/01/17 07:00 08:00 10:40 15:46 Temp 97.7 98.2 97.9 97.7 98.2 97.9 Pulse 63 61 69 Resp 18 18 18 B/P 124/80 139/96 128/79 Pulse Ox 93 96 95 O2 Delivery Room Air Room Air Room Air Room Air Intake and Output 12/31/16 12/31/16 01/01/17 15:00 23:00 07:00 Intake Total 500 ml 900 ml Output Total 1000 ml 1 ml Balance 500 ml -100 ml -1 ml MERCY STAPLES MD Jan 01, 2017 17:02
[2017-01-01 19:51] VITALS: BP 135/96
[2017-01-01 23:19] VITALS: BP 126/88
[2017-01-02 03:18] VITALS: BP 118/78
--- NOTE | 2017-01-02 04:35 | CONS ---
DATE OF CONSULTATION: 01/01/2017 LOCATION: The patient is in room 538. 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 Patient also noted to have hydronephrosis on his initial CT scan, but it had resolved as of his ultrasound following day. Urology was now consulted. The patient's creatinine is normal at 0.8. 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 The patient states he has never had any other urologic complaints. 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 His pain has been in the left and right upper quadrants. No back pain. The patient has been seen by gastrointestinal physicians here on this admission. The patient has allergy to nonsteroidal anti-inflammatories. Patient's white count 6.4. Initial urine showed no signs of any infection. PHYSICAL EXAMINATION: ABDOMEN: Soft, tenderness is in the upper quadrants bilaterally. No CVA tenderness. Phallus is within normal limits. GENITOURINARY: Testes are descended bilaterally. I do not feel a right vas deferens. No obvious inguinal hernias. RECTAL: Good sphincter tone. Prostate smooth, nontender, without nodules, overall size 15 grams. PLAN: I talked with the patient concerning his findings and return to go ahead and get a Lasix renal scan to rule out any obstruction. 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 I certainly appreciate being allowed to participate in this patient's care. KENDAL LEOS MD DR: TONNY/minal JOB#: [id number] / [id number]
[2017-01-02 07:00] VITALS: BP 120/60
[2017-01-02] MEDS: PANTOPRAZOLE 40 MG TABLET.DR. PO SCH (08:07)
[2017-01-02] MEDS: THIAMINE 100 MG TABLET. PO SCH (08:07)
[2017-01-02] MEDS: FOLIC ACID 1 MG TABLET. PO SCH (08:07)
--- NOTE | 2017-01-02 08:41 | PDOC ---
PROGRESS NOTES Chief Complaint Chief Complaint 1. Abdominal pain , 2/2 gastritis likely 2/2 heavy ETOH 2. elevated transaminitis 2/2 alcoholic hepatitis likely 3. solitary Left kidney, congenital 4. Alcohol use, heavy Plan Lasix renal scan to r/o obstruction pending clinically improving Mild elevation of LFT GI recommendations noted hepatitis panel negative. History of Present Illness History of Present Illness abd pain better, no N/V LFT still high no fever no chills. Vitals Vitals Vital Signs Date Time Temp Pulse Resp B/P Pulse Ox O2 Delivery O2 Flow Rate FiO2 01/02/17 07:00 97.0 68 22 120/60 97 Room Air 97.0 Physical Exam General: Alert, Oriented X3, Cooperative Heart: Regular rate, Normal S1, Normal S2 Lungs: Clear Abdomen: Normal bowel sounds, Soft Extremities: No clubbing, No cyanosis Comment Review of Relevant I have reviewed the following items amor (where applicable) has been applied. Medications Current Medications Oxycodone/ Acetaminophen (Percocet 7.5/ 325) 1 tab PRN Q4HRS PRN PO MODERATE PAIN Last administered on 12/30/16 09:44; Start 12/30/16 at 03:00 Pantoprazole Sodium 40 mg 40 mg DAILYAC PO Last administered on 01/02/17 08:07 ; Start 12/30/16 at 07:30 Sodium Chloride (Iv Sodium Chloride 0.9% 1000ml Bag) 1,000 ml @ 75 mls/hr [id number] IV Last administered on 12/31/16 06:08; Start 12/30/16 at 03:30; Stop at 10:11; Status DC Nicotine (Nicoderm Cq 14mg) 1 patch PRN DAILY PRN TD SMOKING CESSATION; Start 12/30/16 at 03:00 Zolpidem Tartrate (Ambien) 5 mg PRN QHS PRN PO INSOMNIA; Start 12/30/16 at 03:00 Ondansetron HCl (Zofran Odt) 4 mg PRN Q8HRS PRN PO NAUSEA/VOMITING Last administered on 12/30/16 10:43; Start 12/30/16 at 03:30 Oxycodone/ Acetaminophen (Percocet 7.5/ 325) 2 tab PRN Q4HRS PRN PO SEVERE PAIN ; Start 12/30/16 at 03:30 Acetaminophen (Tylenol) 650 mg PRN Q6HRS PRN PO FEVER Last administered on 01/01 20:28; Start 12/30/16 at 12:15 Morphine Sulfate 2 mg PRN Q2HR PRN IV MODERATE PAIN; Start 12/30/16 at 12:15 Morphine Sulfate 4 mg PRN Q2HR PRN IV SEVERE PAIN; Start 12/30/16 at 12:15 Enoxaparin Sodium (Lovenox 40mg Syringe) 40 mg Q24H SQ Last administered on 12:51; Start 12/30/16 at 13:00 Thiamine HCl (Vitamin B-1) 100 mg DAILY PO Last administered on 01/02/17 08:07 ; Start 12/31/16 at 18:00 Folic Acid (Folic Acid) 1 mg DAILY PO Last administered on 01/02/17 08:07; Start 12/31/16 at 18:00 Furosemide (Lasix) 40 mg 1X ONCE IVP ; Start 01/02/17 at 08:45; Stop 01/02/17 at 08:46 Vitals/I & O Vital Sign - Last 24 Hours 01/01/17 01/01/17 01/01/17 01/01/17 10:40 15:46 19:51 23:19 Temp 98.2 97.9 97.5 97.7 98.2 97.9 97.5 97.7 Pulse 61 69 69 55 Resp 18 18 18 18 B/P 139/96 128/79 135/96 126/88 Pulse Ox 96 95 95 95 O2 Delivery Room Air Room Air Room Air Room Air 01/02/17 01/02/17 03:18 07:00 Temp 97.7 97.0 97.7 97.0 Pulse 64 68 Resp 18 22 B/P 118/78 120/60 Pulse Ox 96 97 O2 Delivery Room Air Room Air Intake and Output 01/01/17 01/01/17 01/02/17 15:00 23:00 07:00 Intake Total 500 ml 1140 ml Balance 500 ml 1140 ml MERCY STAPLES MD Jan 02, 2017 08:41
[2017-01-02] MEDS ORDERED: FUROSEMIDE 40 MG/4 ML VIAL. IVP ONE (08:45)
--- NOTE | 2017-01-02 09:11 | PDOC ---
PROGRESS NOTES Subjective Subjective Pt. feeling ok Objective Objective Vital Signs Date Time Temp Pulse Resp B/P Pulse Ox O2 Delivery O2 Flow Rate FiO2 01/02/17 07:00 97.0 68 22 120/60 97 Room Air 97.0 Intake and Output 01/02/17 07:00 Intake Total 1640 ml Balance 1640 ml Intake Oral 1640 ml # Voids 6 Physical Exam Physical Exam Lasix renal scan today Assessment Assessment Home soon if no obstruction on lasix renal scan Refer to Dr. 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 Medications Current Medications Oxycodone/ Acetaminophen (Percocet 7.5/ 325) 1 tab PRN Q4HRS PRN PO MODERATE PAIN Last administered on 12/30/16 09:44; Start 12/30/16 at 03:00 Pantoprazole Sodium 40 mg 40 mg DAILYAC PO Last administered on 01/02/17 08:07 ; Start 12/30/16 at 07:30 Sodium Chloride (Iv Sodium Chloride 0.9% 1000ml Bag) 1,000 ml @ 75 mls/hr [id number] IV Last administered on 12/31/16 06:08; Start 12/30/16 at 03:30; Stop at 10:11; Status DC Nicotine (Nicoderm Cq 14mg) 1 patch PRN DAILY PRN TD SMOKING CESSATION; Start 12/30/16 at 03:00 Zolpidem Tartrate (Ambien) 5 mg PRN QHS PRN PO INSOMNIA; Start 12/30/16 at 03:00 Ondansetron HCl (Zofran Odt) 4 mg PRN Q8HRS PRN PO NAUSEA/VOMITING Last administered on 12/30/16 10:43; Start 12/30/16 at 03:30 Oxycodone/ Acetaminophen (Percocet 7.5/ 325) 2 tab PRN Q4HRS PRN PO SEVERE PAIN ; Start 12/30/16 at 03:30 Acetaminophen (Tylenol) 650 mg PRN Q6HRS PRN PO FEVER Last administered on 01/01 20:28; Start 12/30/16 at 12:15 Morphine Sulfate 2 mg PRN Q2HR PRN IV MODERATE PAIN; Start 12/30/16 at 12:15 Morphine Sulfate 4 mg PRN Q2HR PRN IV SEVERE PAIN; Start 12/30/16 at 12:15 Enoxaparin Sodium (Lovenox 40mg Syringe) 40 mg Q24H SQ Last administered on 12:51; Start 12/30/16 at 13:00 Thiamine HCl (Vitamin B-1) 100 mg DAILY PO Last administered on 01/02/17 08:07 ; Start 12/31/16 at 18:00 Folic Acid (Folic Acid) 1 mg DAILY PO Last administered on 01/02/17 08:07; Start 12/31/16 at 18:00 Furosemide (Lasix) 40 mg 1X ONCE IVP ; Start 01/02/17 at 08:45; Stop 01/02/17 at 08:46; Status DC Vitals/I & O Vital Sign - Last 24 Hours 01/01/17 01/01/17 01/01/17 01/01/17 10:40 15:46 19:51 23:19 Temp 98.2 97.9 97.5 97.7 98.2 97.9 97.5 97.7 Pulse 61 69 69 55 Resp 18 18 18 18 B/P 139/96 128/79 135/96 126/88 Pulse Ox 96 95 95 95 O2 Delivery Room Air Room Air Room Air Room Air 01/02/17 01/02/17 03:18 07:00 Temp 97.7 97.0 97.7 97.0 Pulse 64 68 Resp 18 22 B/P 118/78 120/60 Pulse Ox 96 97 O2 Delivery Room Air Room Air Intake and Output 01/01/17 01/01/17 01/02/17 15:00 23:00 07:00 Intake Total 500 ml 1140 ml Balance 500 ml 1140 ml KENDAL LEOS MD Jan 02, 2017 09:11
[2017-01-02 11:00] VITALS: BP 123/87
--- NOTE | 2017-01-02 12:12 | PDOC ---
G I PROGRESS NOTE Subjective LUQ pain is improving. No other complaints. Has had renal scan; report pending. Physical Exam Lungs clear. RRR Abdomen soft with muscular tenderness LUQ. Review of Relevant I have reviewed the following items amor (where applicable) has been applied. Medications Current Medications Oxycodone/ Acetaminophen (Percocet 7.5/ 325) 1 tab PRN Q4HRS PRN PO MODERATE PAIN Last administered on 12/30/16 09:44; Start 12/30/16 at 03:00 Pantoprazole Sodium 40 mg 40 mg DAILYAC PO Last administered on 01/02/17 08:07 ; Start 12/30/16 at 07:30 Sodium Chloride (Iv Sodium Chloride 0.9% 1000ml Bag) 1,000 ml @ 75 mls/hr [id number] IV Last administered on 12/31/16 06:08; Start 12/30/16 at 03:30; Stop at 10:11; Status DC Nicotine (Nicoderm Cq 14mg) 1 patch PRN DAILY PRN TD SMOKING CESSATION; Start 12/30/16 at 03:00 Zolpidem Tartrate (Ambien) 5 mg PRN QHS PRN PO INSOMNIA; Start 12/30/16 at 03:00 Ondansetron HCl (Zofran Odt) 4 mg PRN Q8HRS PRN PO NAUSEA/VOMITING Last administered on 12/30/16 10:43; Start 12/30/16 at 03:30 Oxycodone/ Acetaminophen (Percocet 7.5/ 325) 2 tab PRN Q4HRS PRN PO SEVERE PAIN ; Start 12/30/16 at 03:30 Acetaminophen (Tylenol) 650 mg PRN Q6HRS PRN PO FEVER Last administered on 01/01 20:28; Start 12/30/16 at 12:15 Morphine Sulfate 2 mg PRN Q2HR PRN IV MODERATE PAIN; Start 12/30/16 at 12:15 Morphine Sulfate 4 mg PRN Q2HR PRN IV SEVERE PAIN; Start 12/30/16 at 12:15 Enoxaparin Sodium (Lovenox 40mg Syringe) 40 mg Q24H SQ Last administered on 12:51; Start 12/30/16 at 13:00 Thiamine HCl (Vitamin B-1) 100 mg DAILY PO Last administered on 01/02/17 08:07 ; Start 12/31/16 at 18:00 Folic Acid (Folic Acid) 1 mg DAILY PO Last administered on 01/02/17 08:07; Start 12/31/16 at 18:00 Furosemide (Lasix) 40 mg 1X ONCE IVP Last administered on 01/02/17 09:32; Start 01/02/17 at 08:45; Stop 01/02/17 at 08:46; Status DC Vitals/I & O Vital Sign - Last 24 Hours 01/01/17 01/01/17 01/01/17 01/02/17 15:46 19:51 23:19 03:18 Temp 97.9 97.5 97.7 97.7 97.9 97.5 97.7 97.7 Pulse 69 69 55 64 Resp 18 18 18 18 B/P 128/79 135/96 126/88 118/78 Pulse Ox 95 95 95 96 O2 Delivery Room Air Room Air Room Air Room Air 01/02/17 01/02/17 01/02/17 07:00 08:00 11:00 Temp 97.0 97.6 97.0 97.6 Pulse 68 60 Resp 22 24 B/P 120/60 123/87 Pulse Ox 97 98 O2 Delivery Room Air Room Air Room Air Intake and Output 01/01/17 01/01/17 01/02/17 14:59 22:59 06:59 Intake Total 500 ml 1140 ml Balance 500 ml 1140 ml Problem List Problems Medical Problems: (1) Hydronephrosis Status: Acute Assessment Abdominal wall pain, improving. Congenital absence of right kidney. Plan of Care: Continue current Tx, Mgmt Plan of Care Note OK from our standpoint to dismiss at your discretion. YASH REDDY MD Jan 02, 2017 12:12
--- NOTE | 2017-01-02 13:07 | RAD ---
Radionuclide renal scan with Lasix, 01/02/2017: History: Intermittent hydronephrosis, solitary kidney Imaging was performed following IV injection of 10.0 mCi of technetium 99m MAG3. 40 mg of Lasix was administered IV 20 minutes into the exam. There is prompt perfusion of the left kidney. The right kidney is absent. There is prompt parenchymal uptake of the radionuclide by the left kidney. There is prominent activity within the collecting system and ureter in this patient with known mild collecting system and ureteral dilatation. There is good washout of activity from the left renal pelvis and ureter. Peak activity in the kidney and collecting system occurs at 6 minutes. On the final images there is only a small amount of residual pooling of activity within the dilated left renal collecting system. Normal bladder activity is evident. IMPRESSION: 1. Solitary left kidney. 2. Good function of the left kidney. 3. No evidence of significant active left renal obstruction.
== END 2017-01-02 14:19 | disposition home or self-care (01) | DRG 392 ==
LOC: 5 SOUTH 02:24
PROVIDERS: ADMIT Internal Medicine; ATTEND Internal Medicine
DX: R10.9 Unspecified abdominal pain (principal); N13.30 Unspecified hydronephrosis; Q60.0 Renal agenesis, unilateral; Y90.0 Blood alcohol level of less than 20 mg/100 ml; Z87.19 Personal history of other diseases of the digestive system; Z88.8 Allergy status to other drugs, medicaments and biological substances
CPT/HCPCS: 36415; 71010; 76700; 78708; 80048; 80074; 80076; 83690; 85007; 85027; 96374; 96375; A9562; G0481; J1650; J1940; J7030; Q0162